=== PATIENT | female | born 2000 | race Caucasian/White ===

== ENCOUNTER 2019-11-19 06:51 | Inpatient (IN) | payer MEDICAID ==
[2019-11-19] MEDS ORDERED: Sodium Chloride 0.9% 2.5 ML Syringe FLUSH PRN (07:15)
[2019-11-19] MEDS ORDERED: Sodium Chloride 0.9% 10 ML Syringe FLUSH PRN (07:15)
[2019-11-19] MEDS ORDERED: Sodium Chloride 0.9% 1,000 ML IV ONE (07:15)
--- NOTE | 2019-11-19 07:29 | EDM.PDOC ---
ED HPI GENERAL MEDICAL PROBLEM - General Chief Complaint: Respiratory Problem Stated Complaint: TESTING Time Seen by Provider: 11/19/19 07:15 Source of Information: Reports: Patient History Limitations: Reports: No Limitations - History of Present Illness INITIAL COMMENTS - FREE TEXT/NARRATIVE: HISTORY OF PRESENT ILLNESS: Patient is a 19-year-old female with type 1 diabetes who states she has not been compliant with her medications and only taking them intermittently over the past month. She states that she has been under a great deal of stress due to a recent divorce. Reports polydipsia and polyuria. Denies any dysuria. Denies , abdominal pain, nausea vomiting or diarrhea. No fevers or chills. Reports shortness of breath which is typical when her sugars become high as per patient. She noted her fingerstick to be 495 this morning and took 20 units of Novolog. Reports occasional panic attacks but denies any suicidal or homicidal ideation. REVIEW OF SYSTEMS: Other than the symptoms associated with the present events, the following is reported with regard to recent health: General: (-) fever. HENT: (-) congestion. Respiratory: (-) cough. Cardiovascular: (-) chest pain. GI: (-) abdominal pain. : (-) dysuria Musculoskeletal: (-) other aches or pains. Endocrine: (-) generalized weakness. Neurological: (-) localized weakness. Skin: (-) rash PAST MEDICAL HISTORY: reviewed as per nursing notes SOCIAL HISTORY: reviewed as per nursing notes, MEDICATIONS: Per nurse's note ALLERGIES: Per nurse's note, reviewed by me PHYSICAL EXAMINATION: GENERALIZED APPEARANCE: well developed, well nourished in mild distress VITAL SIGNS: Per nurse's note, reviewed by me SKIN: Warm, dry; (-) cyanosis; (-) rash. HEAD: (-) scalp swelling, (-) tenderness. EYES: (-) conjunctival pallor, (-) scleral icterus. ENMT: (-) stridor; mucous membranes moist. NECK: (-) tenderness, (-) stiffness, CHEST AND RESPIRATORY: (-) rales, (-) rhonchi, (-) wheezes; breath sounds equal bilaterally, mild tachypnea. HEART AND CARDIOVASCULAR: tachycardic, regular rhythm (-) irregularity; (-) murmur, (-) gallop. ABDOMEN AND GI: Soft; (-) tenderness, (-) guarding, (-) rebound, (-) palpable masses, EXTREMITIES: (-) deformity, (-) edema. NEURO AND PSYCH: Alert. Cranial nerves grossly intact; strength symmetric. gait steady DIAGNOSTICS: EKG: sr at 93 bpm. nml axis. early repolarization. no acute st changes Labs ordered and reviewed by myself EMERGENCY DEPARTMENT COURSE AND TREATMENT: Patient's condition improved during Emergency Department evaluation. IVF ordered upon presentation, awaiting K prior to starting Insulin. Pt with hyperglycemia, anion gap of 29, pH of 7.07, K of 4.4 with moderate ketones. She is in DKA. KCl 20 mEQ added to IVF and Insulin drip started. Call placed to Dr. Meyers who kindly agrees to admit. 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 Musculoskeletal History: Reports: None Neurological History: Reports: None Psychiatric History: Reports: None Endocrine/Metabolic History: Reports: Diabetes, Type I Insulin Pump Model and Buffing Wheel Former Automatic: None Hematologic History: Reports: None Immunologic History: Reports: None Oncologic (Cancer) History: Reports: None Dermatologic History: Reports: None - Infectious Disease History Infectious Disease History: Reports: None - Past Surgical History Head Surgeries/Procedures: Reports: None Social & Family History - Family History Family Medical History: Noncontributory - Tobacco Use Smoking Status *Q: Current Some Day Smoker Years of Tobacco use: 1 Packs/Tins Daily: 1 - Caffeine Use Caffeine Use: Reports: None - Recreational Drug Use Recreational Drug Use: No ED ROS GENERAL - Review of Systems Review Of Systems: See Below (see dictation) ED EXAM, GENERAL - Physical Exam Exam: See Below (see dictation) Course - Vital Signs Last Recorded V/S: Last Vital Signs Temp 96.9 F 11/19/19 08:45 Pulse 88 11/19/19 08:45 Resp 18 11/19/19 08:45 BP 102/68 11/19/19 08:45 Pulse Ox 100 11/19/19 08:45 - Orders/Labs/Meds Orders: Active Orders 24 hr Category Date Time Status Blood Glucose Check, Bedside [] Q1HR Care 11/19/19 07:15 Active Communication Order [RC] STAT Care 11/19/19 07:48 Active Communication Order [RC] STAT Care 11/19/19 07:48 Active Communication Order [RC] STAT Care 11/19/19 07:48 Active Communication Order [RC] STAT Care 11/19/19 07:48 Active EKG 12 Lead [EKG Documentation Completion] [] STAT Care 11/19/19 07:45 Active Insulin Regular, Human [NovoLIN R] 100 unit Med 11/19/19 08:00 Active Sodium Chloride 0.9% [Normal Saline] 99 ml IV TITRATE NS + KCl 20mEq/L [Normal Saline with 20 mEq KCl] 1,000 Med 11/19/19 08:00 Active ml IV 500 mls/hr Sodium Chloride 0.9% [Saline Flush] Med 11/19/19 07:15 Active 10 ml FLUSH ASDIRECTED PRN Sodium Chloride 0.9% [Saline Flush] Med 11/19/19 07:15 Active 2.5 ml FLUSH ASDIRECTED PRN Saline Lock Insert [OM.PC] Stat Oth 11/19/19 07:15 Ordered Medication Orders Enoxaparin Sodium (Lovenox) 40 mg SUBCUT Q24H BARRY Insulin Human Regular 100 unit (/ Sodium Chloride) 100 mls @ 7.93 mls/hr IV TITRATE BARRY; Protocol Last Titration: 11/19/19 09:18 Dose: 0.07 units/kg/hr, 5.9 mls/hr Admin: 11/19/19 08:12 Dose: 0.1 units/kg/hr, 7.93 mls/hr Potassium Chloride/Sodium Chloride (Normal Saline With 20 Meq Kcl) 1,000 mls @ 500 mls/hr IV .Q2H ONE Stop: 11/19/19 09:59 Last Admin: 11/19/19 08:18 Dose: 500 mls/hr Ondansetron HCl (Zofran) 4 mg IVPUSH Q4H PRN PRN Reason: Nausea Sodium Chloride (Saline Flush) 10 ml FLUSH ASDIRECTED PRN PRN Reason: Keep Vein Open Last Admin: 11/19/19 07:45 Dose: 10 ml Sodium Chloride (Saline Flush) 2.5 ml FLUSH ASDIRECTED PRN PRN Reason: Keep Vein Open Labs: Laboratory Tests 11/19/19 11/19/19 11/19/19 Range/Units 06:50 06:50 06:50 WBC 11.98 H (4.0-11.0) K/uL RBC 5.21 (4.30-5.90) M/uL Hgb 16.1 H (12.0-16.0) g/dL Hct 50.8 H (36.0-46.0) % MCV 97.5 (80.0-98.0) fL MCH 30.9 (27.0-32.0) pg MCHC 31.7 (31.0-37.0) g/dL RDW Std Deviation 49.5 (28.0-62.0) fl RDW Coeff of Zahida 14 (11.0-15.0) % Plt Count 145 L (150-400) K/uL Neut % (Auto) 42.5 L (48.0-80.0) % Lymph % (Auto) 49.8 H (16.0-40.0) % [place] % (Auto) 5.4 (0.0-15.0) % Eos % (Auto) 1.5 (0.0-7.0) % Baso % (Auto) 0.8 (0.0-1.5) % Neut # (Auto) 5.1 (1.4-5.7) K/uL Lymph # (Auto) 6.0 H (0.6-2.4) K/uL [place] # (Auto) 0.7 (0.0-0.8) K/uL Eos # (Auto) 0.2 (0.0-0.7) K/uL Baso # (Auto) 0.1 (0.0-0.1) K/uL Nucleated RBC % 0.0 /100WBC Nucleated RBCs # 0 K/uL VBG pH (7.31-7.41) VBG pCO2 (35-45) mmHG VBG pO2 (30-40) mmHG VBG HCO3 (22-30) mEq/L VBG Total CO2 (41-51) mmol/L VBG Base Excess (-3.0-3.0) Sodium 135 L (136-145) mmol/L Potassium 4.4 (3.5-5.1) mmol/L Chloride 97 L (98-107) mmol/L Carbon Dioxide 8.4 L (21.0-32.0) mmol/L BUN 15 (7.0-18.0) mg/dL Creatinine 1.3 H (0.6-1.0) mg/dL Est Cr Clr Drug Dosing 76.51 mL/min Estimated GFR (MDRD) 51.7 ml/min Glucose 537 H* (74-106) mg/dL Calcium 9.1 (8.5-10.1) mg/dL Total Bilirubin 0.5 (0.2-1.0) mg/dL AST 15 (15-37) IU/L ALT 25 (14-63) IU/L Alkaline Phosphatase 112 (46-116) U/L Total Protein 7.5 (6.4-8.2) g/dL Albumin 4.2 (3.4-5.0) g/dL Globulin 3.3 (2.6-4.0) g/dL Albumin/Globulin Ratio 1.3 (0.9-1.6) Urine Color Urine Appearance Urine pH (5.0-8.0) Ur Specific [place] (1.001-1.035) Urine Protein (NEGATIVE) mg/dL Urine Glucose (UA) (NEGATIVE) mg/dL Urine Ketones (NEGATIVE) mg/dL Urine Occult Blood (NEGATIVE) Urine Nitrite (NEGATIVE) Urine Bilirubin (NEGATIVE) Urine Ictotest Urine Urobilinogen (<2.0) EU/dL Ur Leukocyte Esterase (NEGATIVE) Urine RBC (0-2/HPF) Urine WBC (0-5/HPF) Ur Epithelial Cells (NONE-FEW) Urine Bacteria (NEGATIVE) Urine HCG, Qual (NEGATIVE) Ketones MODERATE H (NEG) 11/19/19 11/19/19 11/19/19 Range/Units 06:50 07:47 07:47 WBC (4.0-11.0) K/uL RBC (4.30-5.90) M/uL Hgb (12.0-16.0) g/dL Hct (36.0-46.0) % MCV (80.0-98.0) fL MCH (27.0-32.0) pg MCHC (31.0-37.0) g/dL RDW Std Deviation (28.0-62.0) fl RDW Coeff of [place] (11.0-15.0) % Plt Count (150-400) K/uL Neut % (Auto) (48.0-80.0) % Lymph % (Auto) (16.0-40.0) % [place] % (Auto) (0.0-15.0) % Eos % (Auto) (0.0-7.0) % Baso % (Auto) (0.0-1.5) % Neut # (Auto) (1.4-5.7) K/uL Lymph # (Auto) (0.6-2.4) K/uL [place] # (Auto) (0.0-0.8) K/uL Eos # (Auto) (0.0-0.7) K/uL Baso # (Auto) (0.0-0.1) K/uL Nucleated RBC % /100WBC Nucleated RBCs # K/uL VBG pH 7.07 L (7.31-7.41) VBG pCO2 27 L (35-45) mmHG VBG pO2 31 (30-40) mmHG VBG HCO3 8 L (22-30) mEq/L VBG Total CO2 8 L (41-51) mmol/L VBG Base Excess -20.8 L (-3.0-3.0) Sodium (136-145) mmol/L Potassium (3.5-5.1) mmol/L Chloride (98-107) mmol/L Carbon Dioxide (21.0-32.0) mmol/L BUN (7.0-18.0) mg/dL Creatinine (0.6-1.0) mg/dL Est Cr Clr Drug Dosing mL/min Estimated GFR (MDRD) ml/min Glucose (74-106) mg/dL Calcium (8.5-10.1) mg/dL Total Bilirubin (0.2-1.0) mg/dL AST (15-37) IU/L ALT (14-63) IU/L Alkaline Phosphatase (46-116) U/L Total Protein (6.4-8.2) g/dL Albumin (3.4-5.0) g/dL Globulin (2.6-4.0) g/dL Albumin/Globulin Ratio (0.9-1.6) Urine Color YELLOW Urine Appearance CLEAR Urine pH 5.5 (5.0-8.0) Ur Specific [place] >= 1.030 (1.001-1.035) Urine Protein TRACE H (NEGATIVE) mg/dL Urine Glucose (UA) >=1000 (NEGATIVE) mg/dL Urine Ketones >=80 (NEGATIVE) mg/dL Urine Occult Blood SMALL H (NEGATIVE) Urine Nitrite NEGATIVE (NEGATIVE) Urine Bilirubin SMALL H (NEGATIVE) Urine Ictotest NEGATIVE Urine Urobilinogen 0.2 (<2.0) EU/dL Ur Leukocyte Esterase NEGATIVE (NEGATIVE) Urine RBC 0-2 (0-2/HPF) Urine WBC 0-2 (0-5/HPF) Ur Epithelial Cells FEW (NONE-FEW) Urine Bacteria RARE (NEGATIVE) Urine HCG, Qual NEGATIVE (NEGATIVE) Ketones (NEG) Meds: Medications Generic Name Dose Route Start Last Admin Trade Name Freq PRN Reason Stop Dose Admin Enoxaparin Sodium 40 mg 11/19/19 09:30 Lovenox SUBCUT Q24H BARRY Insulin Human Regular 100 unit 100 mls @ 7.93 mls/hr 11/19/19 08:00 11/19/19 09:18 / Sodium Chloride IV 0.07 units/kg/hr TITRATE BARRY 5.9 mls/hr Titration Protocol 0.1 UNITS/KG/HR Potassium Chloride/Sodium Chloride 1,000 mls @ 500 mls/hr 11/19/19 08:00 08/28 08:18 Normal Saline With 20 Meq Kcl IV 11/19/19 09:59 500 mls/hr .Q2H ONE Administration Ondansetron HCl 4 mg 11/19/19 09:24 Zofran IVPUSH Q4H PRN Nausea Sodium Chloride 10 ml 11/19/19 07:15 11/19/19 07:45 Saline Flush FLUSH 10 ml ASDIRECTED PRN Administration Keep Vein Open Sodium Chloride 2.5 ml 11/19/19 07:15 Saline Flush FLUSH ASDIRECTED PRN Keep Vein Open Discontinued Medications Generic Name Dose Route Start Last Admin Trade Name Freq PRN Reason Stop Dose Admin Sodium Chloride 1,000 mls @ 999 mls/hr 11/19/19 07:15 11/19/19 07:44 Normal Saline IV 11/19/19 08:15 999 mls/hr BOLUS ONE Administration Departure - Departure Time of Disposition: 07:55 Disposition: Admitted As Inpatient 64 Condition: Good Clinical Impression: DKA (diabetic ketoacidoses) - Discharge Information Sepsis Event Note - Evaluation Sepsis Screening Result: No Definite Risk - Focused Exam Vital Signs: Vital Signs Temp Pulse Resp BP Pulse Ox 11/19/19 07:53 88 18 122/76 96 11/19/19 06:55 96.7 F L 118 H 24 H 140/86 100 Date Exam was Performed: 11/19/19 Time Exam was Performed: 09:38 - My Orders Last 24 Hours: My Active Orders 11/19/19 07:15 Blood Glucose Check, Bedside [RC] Q1HR Sodium Chloride 0.9% [Saline Flush] 10 ml FLUSH ASDIRECTED PRN Sodium Chloride 0.9% [Saline Flush] 2.5 ml FLUSH ASDIRECTED PRN Saline Lock Insert [OM.PC] Stat 11/19/19 07:45 EKG 12 Lead [EKG Documentation Completion] [RC] STAT 11/19/19 07:48 Communication Order [RC] STAT Communication Order [RC] STAT Communication Order [RC] STAT Communication Order [RC] STAT 11/19/19 08:00 Insulin Regular, Human [NovoLIN R] 100 unit Sodium Chloride 0.9% [Normal Saline] 99 ml IV TITRATE NS + KCl 20mEq/L [Normal Saline with 20 mEq KCl] 1,000 ml IV 500 mls/hr - Assessment/Plan Last 24 Hours: My Active Orders 11/19/19 07:15 Blood Glucose Check, Bedside [RC] Q1HR Sodium Chloride 0.9% [Saline Flush] 10 ml FLUSH ASDIRECTED PRN Sodium Chloride 0.9% [Saline Flush] 2.5 ml FLUSH ASDIRECTED PRN Saline Lock Insert [OM.PC] Stat 11/19/19 07:45 EKG 12 Lead [EKG Documentation Completion] [RC] STAT 11/19/19 07:48 Communication Order [RC] STAT Communication Order [RC] STAT Communication Order [RC] STAT Communication Order [RC] STAT 11/19/19 08:00 Insulin Regular, Human [NovoLIN R] 100 unit Sodium Chloride 0.9% [Normal Saline] 99 ml IV TITRATE NS + KCl 20mEq/L [Normal Saline with 20 mEq KCl] 1,000 ml IV 500 mls/hr
[2019-11-19 07:33] LABS: CARBON DIOXIDE,CO2 8.4 mmol/L (21.0-32.0); POTASSIUM,K 4.4 mmol/L (3.5-5.1)
[2019-11-19] MEDS ORDERED: NS + KCl 20mEq/L 1,000 ML IV ONE (08:00)
[2019-11-19] MEDS ORDERED: Ondansetron 4 MG/2 ML SDV IVPUSH PRN (09:24)
[2019-11-19] MEDS ORDERED: Enoxaparin 40 MG/0.4 ML Syringe SUBCUT SCH (09:30)
[2019-11-19 10:32] LABS: HEMOGLOBIN A1C 11.5 % (4.5-6.2)
--- NOTE | 2019-11-19 10:32 | PN ---
THC Physician - Brief Progress [id number]/12/2020 09:57[facility] Keny Fernando, [facility]U - [facility] - MWN ICUKAJAL HANDYDate of Service 11/19/2019 09:57HPI/Events of Note eICU Admission [id number] admitted for DKA. History obtained primarily from review of EMR.PMH: type 1 DMHPI:Camera exam: Laying in bed. Vitals monitor reviewed. Vitals: reviewedLabs: reviewedRadio logy: reviewedMeds: reviewedeICU Impression and Recommendations:Diabetic ketoacidosis, as evidenced b y hyperglycemia, ketone production, and elevated anion gap. Suspected etiology is inadequate insulin. Recommend initiation of institutional diabetic ketoacidosis protocol for insulin replacement. Patient to remain strict NPO (except meds)Intravenous fluids for fluid resuscitation with strict I/OElectrol yte replacement as needed, including potassium, magnesium and phosphorus.Given concomitant insulin ad ministration, recommend aggressive potassium replacement given risk of further depletion.BMP and VBG q4h for assessment of progression. Consider checking magnesium and phosphorus levels. Hb [id number] diabetes education prior to discharge, with close PCP follow upPositive SIRS criteria, as evidenced by tachycardia and leukocytosis, likely secondary to DKA rather than sepsistrend WBC and vitals with fluid resuscitation over next hours to assess progression, and if they fail to resolve can initiate s epsis work up with blood cultures, respiratory cultures, urinalysis, chest x-ray, and serum lactateDV T and GI prophylaxis as appropriate.Thank you for allowing us to participate in the care of this elvis ent.The above note transcribed with the assistance of dictation software. Please excuse any errors.In terventions Major-Other: DKA
[2019-11-19] MEDS: D5 1/2 NS w/ 20 mEq/L KCl 1,000 ML IV SCH ×3 (10:35→19:23)
[2019-11-19 10:37] LABS: BLOOD UREA NITROGEN,BUN 13 mg/dL (7.0-18.0); CARBON DIOXIDE,CO2 12.2 mmol/L (21.0-32.0); CHLORIDE,CL 105 mmol/L (98-107); GLUCOSE RANDOM 197 mg/dL (74-106); POTASSIUM,K 4.1 mmol/L (3.5-5.1); SODIUM,NA 139 mmol/L (136-145)
[2019-11-19] MEDS ORDERED: Nicotine 14 MG/24 Hr Patch TRDERM SCH (10:45)
--- NOTE | 2019-11-19 11:31 | PCM.HP.2 ---
H&P History of Present Illness - General Date of Service: 11/19/19 Admit Problem/Dx: Admission Diagnosis/Problem Admission Diagnosis/Problem Diabetic ketoacidosis Source of Information: Patient History Limitations: Reports: No Limitations - History of Present Illness Initial Comments - Free Text/Narative: 19-year-old female presented to hospital complaining of increased urination, increased thirst, dizziness and elevated blood sugars for the past few days. She has a PMH of type 1 DM and bipolar disorder. Patient reports that she has not been taking her insulin as prescribed lately. She reports going through significant family stressors recently including going through a divorce and being away from her children. Her home blood sugar reading this morning was 500 so she decided to go to the ER. She takes levemir 14 units BID and novolog sliding scale. She reports not seeing her PCP for a long time but does not provide a timeline. She smokes tobacco 1 ppd every 2-3 days. Denies alcohol use. Denies illicit drug use. Denies any suicidal or homicidal ideation. Furthermore, she denies having any fevers, chills, blurry vision, sore throat, cough, chest pain, SOB, n/v/d, abdominal pain, burning on urination, blood in stool, blood in urine, numbness or tingling. In the ER, blood glucose was > 500. VBG showed: pH 7, HCO3 8, pCO2 27. UA was positive for ketones. WBC count 11.98. Patient started on IV fluids, potassium replacement and insulin drip. Patient admitted to ICU for further evaluation and treatment. - Related Data Allergies/Adverse Reactions: Allergies Allergy/AdvReac Type Severity Reaction Status Date / Time codeine Allergy Hives Verified 11/19/19 06:57 Home Medications: Home Meds Insulin Aspart [NovoLOG] 1 injection SQ ASDIRECTED 11/19/19 [History] Insulin Detemir [Levemir] 1 injection SUBCUT ASDIRECTED 11/19/19 [History] Past Medical History HEENT History: Reports: None Cardiovascular History: Reports: None Respiratory History: Reports: None Gastrointestinal History: Reports: None Genitourinary History: Reports: None CHECK SCALER History: Reports: None Musculoskeletal History: Reports: None Neurological History: Reports: None Psychiatric History: Reports: None Endocrine/Metabolic History: Reports: Diabetes, Type I Insulin Pump Model and Trapeze Performer: None Hematologic History: Reports: None Immunologic History: Reports: None Oncologic (Cancer) History: Reports: None Dermatologic History: Reports: None - Infectious Disease History Infectious Disease History: Reports: None - Past Surgical History Head Surgeries/Procedures: Reports: None Social & Family History - Family History Family Medical History: Noncontributory - Tobacco Use Smoking Status *Q: Current Some Day Smoker Years of Tobacco use: 1 Packs/Tins Daily: 1 - Caffeine Use Caffeine Use: Reports: None - Recreational Drug Use Recreational Drug Use: No H&P Review of Systems - Review of Systems: Review Of Systems: Comprehensive ROS is negative, except as noted in HPI. Exam - Exam Exam: See Below - Vital Signs Vital Signs: Last Vital Signs Temp 96.9 F 11/19/19 08:45 Pulse 88 11/19/19 08:45 Resp 18 11/19/19 08:45 BP 102/68 11/19/19 08:45 Pulse Ox 100 11/19/19 08:45 Weight: 175 lb - Exam General: Alert, Oriented, Cooperative, Other (NAD) HEENT: Conjunctiva Clear, EOMI, Hearing Intact Neck: Supple, Trachea Midline Lungs: Clear to Auscultation, Normal Respiratory Effort Cardiovascular: Regular Rate, Regular Rhythm GI/Abdominal Exam: Normal Bowel Sounds, Soft, Non-Tender, No Distention Extremities: Normal Inspection, No Pedal Edema Peripheral Pulses: 2+: Posterior Tibial (L), Posterior Tibial (R) Skin: Warm, Dry, Intact Neurological: Cranial Nerves Intact Neuro Extensive - Mental Status: Alert, Oriented x3, Normal Mood/Affect Psychiatric: Other (Flat affect. Normal mood.) - Patient Data Lab Results Last 24 hrs: Laboratory Results - last 24 hr 11/19/19 11/19/19 11/19/19 Range/Units 06:50 06:50 06:50 WBC 11.98 H (4.0-11.0) K/uL RBC 5.21 (4.30-5.90) M/uL Hgb 16.1 H (12.0-16.0) g/dL Hct 50.8 H (36.0-46.0) % MCV 97.5 (80.0-98.0) fL MCH 30.9 (27.0-32.0) pg MCHC 31.7 (31.0-37.0) g/dL RDW Std Deviation 49.5 (28.0-62.0) fl RDW Coeff of Zahida 14 (11.0-15.0) % Plt Count 145 L (150-400) K/uL Neut % (Auto) 42.5 L (48.0-80.0) % Lymph % (Auto) 49.8 H (16.0-40.0) % [place] % (Auto) 5.4 (0.0-15.0) % Eos % (Auto) 1.5 (0.0-7.0) % Baso % (Auto) 0.8 (0.0-1.5) % Neut # (Auto) 5.1 (1.4-5.7) K/uL Lymph # (Auto) 6.0 H (0.6-2.4) K/uL [place] # (Auto) 0.7 (0.0-0.8) K/uL Eos # (Auto) 0.2 (0.0-0.7) K/uL Baso # (Auto) 0.1 (0.0-0.1) K/uL Nucleated RBC % 0.0 /100WBC Nucleated RBCs # 0 K/uL VBG pH (7.31-7.41) VBG pCO2 (35-45) mmHG VBG pO2 (30-40) mmHG VBG HCO3 (22-30) mEq/L VBG Total CO2 (41-51) mmol/L VBG Base Excess (-3.0-3.0) Sodium 135 L (136-145) mmol/L Potassium 4.4 (3.5-5.1) mmol/L Chloride 97 L (98-107) mmol/L Carbon Dioxide 8.4 L (21.0-32.0) mmol/L BUN 15 (7.0-18.0) mg/dL Creatinine 1.3 H (0.6-1.0) mg/dL Est Cr Clr Drug Dosing 76.51 mL/min Estimated GFR (MDRD) 51.7 ml/min Glucose 537 H* (74-106) mg/dL POC Glucose (60-110) mg/dL Hemoglobin A1c (4.5-6.2) % Calcium 9.1 (8.5-10.1) mg/dL Phosphorus (2.6-4.7) mg/dL Magnesium (1.8-2.4) mg/dL Total Bilirubin 0.5 (0.2-1.0) mg/dL AST 15 (15-37) IU/L ALT 25 (14-63) IU/L Alkaline Phosphatase 112 (46-116) U/L Total Protein 7.5 (6.4-8.2) g/dL Albumin 4.2 (3.4-5.0) g/dL Globulin 3.3 (2.6-4.0) g/dL Albumin/Globulin Ratio 1.3 (0.9-1.6) Urine Color Urine Appearance Urine pH (5.0-8.0) Ur Specific [place] (1.001-1.035) Urine Protein (NEGATIVE) mg/dL Urine Glucose (UA) (NEGATIVE) mg/dL Urine Ketones (NEGATIVE) mg/dL Urine Occult Blood (NEGATIVE) Urine Nitrite (NEGATIVE) Urine Bilirubin (NEGATIVE) Urine Ictotest Urine Urobilinogen (<2.0) EU/dL Ur Leukocyte Esterase (NEGATIVE) Urine RBC (0-2/HPF) Urine WBC (0-5/HPF) Ur Epithelial Cells (NONE-FEW) Urine Bacteria (NEGATIVE) Urine HCG, Qual (NEGATIVE) Ketones MODERATE H (NEG) 11/19/19 11/19/19 11/19/19 Range/Units 06:50 06:50 06:50 WBC (4.0-11.0) K/uL RBC (4.30-5.90) M/uL Hgb (12.0-16.0) g/dL Hct (36.0-46.0) % MCV (80.0-98.0) fL MCH (27.0-32.0) pg MCHC (31.0-37.0) g/dL RDW Std Deviation (28.0-62.0) fl RDW Coeff of Zahida (11.0-15.0) % Plt Count (150-400) K/uL Neut % (Auto) (48.0-80.0) % Lymph % (Auto) (16.0-40.0) % [place] % (Auto) (0.0-15.0) % Eos % (Auto) (0.0-7.0) % Baso % (Auto) (0.0-1.5) % Neut # (Auto) (1.4-5.7) K/uL Lymph # (Auto) (0.6-2.4) K/uL [place] # (Auto) (0.0-0.8) K/uL Eos # (Auto) (0.0-0.7) K/uL Baso # (Auto) (0.0-0.1) K/uL Nucleated RBC % /100WBC Nucleated RBCs # K/uL VBG pH 7.07 L (7.31-7.41) VBG pCO2 27 L (35-45) mmHG VBG pO2 31 (30-40) mmHG VBG HCO3 8 L (22-30) mEq/L VBG Total CO2 8 L (41-51) mmol/L VBG Base Excess -20.8 L (-3.0-3.0) Sodium (136-145) mmol/L Potassium (3.5-5.1) mmol/L Chloride (98-107) mmol/L Carbon Dioxide (21.0-32.0) mmol/L BUN (7.0-18.0) mg/dL Creatinine (0.6-1.0) mg/dL Est Cr Clr Drug Dosing mL/min Estimated GFR (MDRD) ml/min Glucose (74-106) mg/dL POC Glucose (60-110) mg/dL Hemoglobin A1c 11.5 H (4.5-6.2) % Calcium (8.5-10.1) mg/dL Phosphorus 4.3 (2.6-4.7) mg/dL Magnesium 1.9 (1.8-2.4) mg/dL Total Bilirubin (0.2-1.0) mg/dL AST (15-37) IU/L ALT (14-63) IU/L Alkaline Phosphatase (46-116) U/L Total Protein (6.4-8.2) g/dL Albumin (3.4-5.0) g/dL Globulin (2.6-4.0) g/dL Albumin/Globulin Ratio (0.9-1.6) Urine Color Urine Appearance Urine pH (5.0-8.0) Ur Specific [place] (1.001-1.035) Urine Protein (NEGATIVE) mg/dL Urine Glucose (UA) (NEGATIVE) mg/dL Urine Ketones (NEGATIVE) mg/dL Urine Occult Blood (NEGATIVE) Urine Nitrite (NEGATIVE) Urine Bilirubin (NEGATIVE) Urine Ictotest Urine Urobilinogen (<2.0) EU/dL Ur Leukocyte Esterase (NEGATIVE) Urine RBC (0-2/HPF) Urine WBC (0-5/HPF) Ur Epithelial Cells (NONE-FEW) Urine Bacteria (NEGATIVE) Urine HCG, Qual (NEGATIVE) Ketones (NEG) 11/19/19 11/19/19 11/19/19 Range/Units 07:47 07:47 09:07 WBC (4.0-11.0) K/uL RBC (4.30-5.90) M/uL Hgb (12.0-16.0) g/dL Hct (36.0-46.0) % MCV (80.0-98.0) fL MCH (27.0-32.0) pg MCHC (31.0-37.0) g/dL RDW Std Deviation (28.0-62.0) fl RDW Coeff of Zahida (11.0-15.0) % Plt Count (150-400) K/uL Neut % (Auto) (48.0-80.0) % Lymph % (Auto) (16.0-40.0) % [place] % (Auto) (0.0-15.0) % Eos % (Auto) (0.0-7.0) % Baso % (Auto) (0.0-1.5) % Neut # (Auto) (1.4-5.7) K/uL Lymph # (Auto) (0.6-2.4) K/uL [place] # (Auto) (0.0-0.8) K/uL Eos # (Auto) (0.0-0.7) K/uL Baso # (Auto) (0.0-0.1) K/uL Nucleated RBC % /100WBC Nucleated RBCs # K/uL VBG pH (7.31-7.41) VBG pCO2 (35-45) mmHG VBG pO2 (30-40) mmHG VBG HCO3 (22-30) mEq/L VBG Total CO2 (41-51) mmol/L VBG Base Excess (-3.0-3.0) Sodium (136-145) mmol/L Potassium (3.5-5.1) mmol/L Chloride (98-107) mmol/L Carbon Dioxide (21.0-32.0) mmol/L BUN (7.0-18.0) mg/dL Creatinine (0.6-1.0) mg/dL Est Cr Clr Drug Dosing mL/min Estimated GFR (MDRD) ml/min Glucose (74-106) mg/dL POC Glucose 244 H (60-110) mg/dL Hemoglobin A1c (4.5-6.2) % Calcium (8.5-10.1) mg/dL Phosphorus (2.6-4.7) mg/dL Magnesium (1.8-2.4) mg/dL Total Bilirubin (0.2-1.0) mg/dL AST (15-37) IU/L ALT (14-63) IU/L Alkaline Phosphatase (46-116) U/L Total Protein (6.4-8.2) g/dL Albumin (3.4-5.0) g/dL Globulin (2.6-4.0) g/dL Albumin/Globulin Ratio (0.9-1.6) Urine Color YELLOW Urine Appearance CLEAR Urine pH 5.5 (5.0-8.0) Ur Specific [place] >= 1.030 (1.001-1.035) Urine Protein TRACE H (NEGATIVE) mg/dL Urine Glucose (UA) >=1000 (NEGATIVE) mg/dL Urine Ketones >=80 (NEGATIVE) mg/dL Urine Occult Blood SMALL H (NEGATIVE) Urine Nitrite NEGATIVE (NEGATIVE) Urine Bilirubin SMALL H (NEGATIVE) Urine Ictotest NEGATIVE Urine Urobilinogen 0.2 (<2.0) EU/dL Ur Leukocyte Esterase NEGATIVE (NEGATIVE) Urine RBC 0-2 (0-2/HPF) Urine WBC 0-2 (0-5/HPF) Ur Epithelial Cells FEW (NONE-FEW) Urine Bacteria RARE (NEGATIVE) Urine HCG, Qual NEGATIVE (NEGATIVE) Ketones (NEG) 11/19/19 11/19/19 11/19/19 Range/Units 10:11 10:12 11:08 WBC (4.0-11.0) K/uL RBC (4.30-5.90) M/uL Hgb (12.0-16.0) g/dL Hct (36.0-46.0) % MCV (80.0-98.0) fL MCH (27.0-32.0) pg MCHC (31.0-37.0) g/dL RDW Std Deviation (28.0-62.0) fl RDW Coeff of Zahida (11.0-15.0) % Plt Count (150-400) K/uL Neut % (Auto) (48.0-80.0) % Lymph % (Auto) (16.0-40.0) % [place] % (Auto) (0.0-15.0) % Eos % (Auto) (0.0-7.0) % Baso % (Auto) (0.0-1.5) % Neut # (Auto) (1.4-5.7) K/uL Lymph # (Auto) (0.6-2.4) K/uL [place] # (Auto) (0.0-0.8) K/uL Eos # (Auto) (0.0-0.7) K/uL Baso # (Auto) (0.0-0.1) K/uL Nucleated RBC % /100WBC Nucleated RBCs # K/uL VBG pH (7.31-7.41) VBG pCO2 (35-45) mmHG VBG pO2 (30-40) mmHG VBG HCO3 (22-30) mEq/L VBG Total CO2 (41-51) mmol/L VBG Base Excess (-3.0-3.0) Sodium 139 (136-145) mmol/L Potassium 4.1 (3.5-5.1) mmol/L Chloride 105 (98-107) mmol/L Carbon Dioxide 12.2 L (21.0-32.0) mmol/L BUN 13 (7.0-18.0) mg/dL Creatinine 1.0 (0.6-1.0) mg/dL Est Cr Clr Drug Dosing 99.46 mL/min Estimated GFR (MDRD) > 60.0 ml/min Glucose 197 H (74-106) mg/dL POC Glucose 191 H 142 H (60-110) mg/dL Hemoglobin A1c (4.5-6.2) % Calcium 8.5 (8.5-10.1) mg/dL Phosphorus (2.6-4.7) mg/dL Magnesium (1.8-2.4) mg/dL Total Bilirubin (0.2-1.0) mg/dL AST (15-37) IU/L ALT (14-63) IU/L Alkaline Phosphatase (46-116) U/L Total Protein (6.4-8.2) g/dL Albumin (3.4-5.0) g/dL Globulin (2.6-4.0) g/dL Albumin/Globulin Ratio (0.9-1.6) Urine Color Urine Appearance Urine pH (5.0-8.0) Ur Specific [place] (1.001-1.035) Urine Protein (NEGATIVE) mg/dL Urine Glucose (UA) (NEGATIVE) mg/dL Urine Ketones (NEGATIVE) mg/dL Urine Occult Blood (NEGATIVE) Urine Nitrite (NEGATIVE) Urine Bilirubin (NEGATIVE) Urine Ictotest Urine Urobilinogen (<2.0) EU/dL Ur Leukocyte Esterase (NEGATIVE) Urine RBC (0-2/HPF) Urine WBC (0-5/HPF) Ur Epithelial Cells (NONE-FEW) Urine Bacteria (NEGATIVE) Urine HCG, Qual (NEGATIVE) Ketones (NEG) Result Diagrams: 11/19/19 06:50 11/19/19 10:11 Sepsis Event Note - Evaluation Sepsis Screening Result: No Definite Risk - Focused Exam Vital Signs: Vital Signs Temp Pulse Resp BP Pulse Ox 11/19/19 08:45 96.9 F 88 18 102/68 100 11/19/19 08:28 79 20 111/68 100 11/19/19 08:09 97.3 F 85 18 109/64 100 11/19/19 07:53 88 18 122/76 96 11/19/19 06:55 96.7 F L 118 H 24 H 140/86 100 Date Exam was Performed: 11/19/19 Time Exam was Performed: 11:25 Problem List Initiated/Reviewed/Updated: Yes Orders Last 24hrs: Active Orders 24 hr Category Date Time Status Admission Status [Patient Status] [ADT] Stat ADT 11/19/19 08:01 Active Blood Glucose Check, Bedside [RC] Q1HR Care 11/19/19 07:15 Active Communication Order [RC] STAT Care 11/19/19 07:48 Active Communication Order [RC] STAT Care 11/19/19 07:48 Active Communication Order [RC] STAT Care 11/19/19 07:48 Active Communication Order [RC] STAT Care 11/19/19 07:48 Active EKG 12 Lead [EKG Documentation Completion] [RC] STAT Care 11/19/19 07:45 Active Oxygen Therapy [RC] PRN Care 11/19/19 09:24 Active Up ad Emily [RC] ASDIRECTED Care 11/19/19 09:24 Active VTE/DVT Education [RC] PER UNIT ROUTINE Care 11/19/19 09:24 Active Vital Signs [RC] Q1H Care 11/19/19 09:24 Active Consult to Academic Success Coordinator [Consult to Diabetic Nurse Cons 11/19/19 09:53 Active Specialist] [CONS] Routine Nothing per Oral Now Diet [DIET] Diet 11/19/19 Breakfast Active BASIC METABOLIC PANEL,BMP [CHEM] Q4H Lab 11/19/19 13:35 Ordered BASIC METABOLIC PANEL,BMP [CHEM] Q4H Lab 11/19/19 17:35 Ordered BASIC METABOLIC PANEL,BMP [CHEM] Q4H Lab 11/19/19 21:35 Ordered BASIC METABOLIC PANEL,BMP [CHEM] Q4H Lab 11/20/19 01:35 Ordered BASIC METABOLIC PANEL,BMP [CHEM] Q4H Lab 11/20/19 05:35 Ordered D5 1/2 NS w/ 20 mEq/L KCl 1,000 ml Med 11/19/19 09:45 Active IV ASDIRECTED Insulin Regular, Human [NovoLIN R] 100 unit Med 11/19/19 09:57 Active Sodium Chloride 0.9% [Normal Saline] 99 ml IV TITRATE Nicotine [Habitrol] Med 11/19/19 10:45 Active 14 mg TRDERM DAILY Ondansetron [Zofran] Med 11/19/19 09:24 Active 4 mg IVPUSH Q4H PRN Sodium Chloride 0.9% [Saline Flush] Med 11/19/19 07:15 Active 10 ml FLUSH ASDIRECTED PRN Sodium Chloride 0.9% [Saline Flush] Med 11/19/19 07:15 Active 2.5 ml FLUSH ASDIRECTED PRN Saline Lock Insert [OM.PC] Stat Oth 11/19/19 07:15 Ordered Resuscitation Status Routine Resus Stat 11/19/19 09:24 Ordered Medication Orders Potassium Chloride/Dextrose/Sod Cl (D5 1/2 Ns W/ 20 Meq/L Kcl) 1,000 mls @ 250 mls/hr IV ASDIRECTED BARRY Last Infusion: 11/19/19 10:38 Dose: 250 mls/hr Admin: 11/19/19 10:35 Dose: 250 mls/hr Insulin Human Regular 100 unit (/ Sodium Chloride) 100 mls @ 7.93 mls/hr IV TITRATE BARRY; Protocol Nicotine (Habitrol) 14 mg TRDERM DAILY BARRY Last Admin: 11/19/19 11:19 Dose: 14 mg Ondansetron HCl (Zofran) 4 mg IVPUSH Q4H PRN PRN Reason: Nausea Sodium Chloride (Saline Flush) 10 ml FLUSH ASDIRECTED PRN PRN Reason: Keep Vein Open Last Admin: 11/19/19 07:45 Dose: 10 ml Sodium Chloride (Saline Flush) 2.5 ml FLUSH ASDIRECTED PRN PRN Reason: Keep Vein Open Assessment/Plan Comment:: Assessment and Plan: 1. Diabetic ketoacidosis in a patient with type 1 DM: - IV fluids, insulin drip and potassium replacement per DKA protocol. Patient currently on D5-1/2 NS + KCl @ 250 cc/hr. Will check BMP q4h. Accucheks q1h. HgbA1c is 11.5. Will consult hematology nurse educator. 2. Tobacco abuse: - Will start nicotine patch. 3. DVT prophylaxis: SCD's.
[2019-11-19 14:22] LABS: BLOOD UREA NITROGEN,BUN 11 mg/dL (7.0-18.0); CARBON DIOXIDE,CO2 18.6 mmol/L (21.0-32.0); CHLORIDE,CL 107 mmol/L (98-107); GLUCOSE RANDOM 154 mg/dL (74-106); POTASSIUM,K 3.8 mmol/L (3.5-5.1); SODIUM,NA 139 mmol/L (136-145)
[2019-11-19] MEDS ORDERED: Calcium Carbonate 500 MG Tab.Chew PO ONE (17:09)
[2019-11-19 18:35] LABS: BLOOD UREA NITROGEN,BUN 10 mg/dL (7.0-18.0); CARBON DIOXIDE,CO2 20.2 mmol/L (21.0-32.0); CHLORIDE,CL 107 mmol/L (98-107); GLUCOSE RANDOM 218 mg/dL (74-106); POTASSIUM,K 3.6 mmol/L (3.5-5.1); SODIUM,NA 139 mmol/L (136-145)
[2019-11-19] MEDS ORDERED: Insulin Detemir 100 Units/ML 3 ML Pen SUBCUT ONE (20:54)
--- NOTE | 2019-11-20 12:07 | PCM.DCSUM1 ---
Discharge Summary - Hospital Course Free Text/Narrative:: 19-year-old female with PMH of type 1 diabetes mellitus admitted for DKA. She was admitted to ICU and treated with IV fluids, potassium replacement and IV insulin drip per DKA protocol. Patient had steady improvement in her anion gap throughout the day. Later in the evening on day of admission, patient requested to leave against medical advice as she reported that her had committed suicide in [place] and patient needed to leave to get to her children in [place]. Patient was given subcutaneous levemir 16 units prior to discharge. Patient signed AMA paperwork prior to leaving. - Discharge Data Discharge Date: 11/19/19 Discharge Disposition: Against Medical Advice 07 Condition: Stable - Referral to Home Health Primary Care Physician: Nya Gordon NP - Patient Summary/Data Consults: Consultations 11/19/19 09:53 Consult to Manager Of Network [Consult to Diabetic Nurse Specialist] [CONS] Routine - Patient Instructions Diet: Diabetic Diet Activity: As Tolerated Notify Provider of: Fever, Increased Pain, Swelling and Redness, Drainage, Nausea and/or Vomiting - Discharge Plan *PRESCRIPTION DRUG MONITORING PROGRAM REVIEWED*: Not Applicable *COPY OF PRESCRIPTION DRUG MONITORING REPORT IN PATIENT ROCIO: Not Applicable Home Medications: Home Meds Insulin Aspart [NovoLOG] 1 injection SQ ASDIRECTED 11/19/19 [History] Insulin Detemir [Levemir] 1 injection SUBCUT ASDIRECTED 11/19/19 [History] Oxygen Therapy Mode: Room Air Forms: ED Department Discharge Referrals: Nya Gordon NP [Primary Care Provider] - - Discharge Summary/Plan Comment DC Time >30 min.: No - Patient Data Vitals - Most Recent: Last Vital Signs Temp 98.0 F 11/19/19 17:00 Pulse 93 11/19/19 18:00 Resp 13 11/19/19 20:00 BP 112/76 11/19/19 20:00 Pulse Ox 100 11/19/19 20:00 Weight - Most Recent: 175 lb I&O - Last 24 hours: Intake & Output 11/19/19 11/20/19 11/20/19 22:59 06:59 14:59 Intake Total 4021 Balance 4021 Lab Results - Last 24 hrs: Laboratory Results - last 24 hr 11/19/19 11/19/19 11/19/19 Range/Units 12:06 13:51 15:07 Sodium 139 (136-145) mmol/L Potassium 3.8 (3.5-5.1) mmol/L Chloride 107 (98-107) mmol/L Carbon Dioxide 18.6 L (21.0-32.0) mmol/L BUN 11 (7.0-18.0) mg/dL Creatinine 1.0 (0.6-1.0) mg/dL Est Cr Clr Drug Dosing 99.46 mL/min Estimated GFR (MDRD) > 60.0 ml/min Glucose 154 H (74-106) mg/dL POC Glucose 132 H 223 H (60-110) mg/dL Calcium 7.9 L (8.5-10.1) mg/dL 11/19/19 11/19/19 11/19/19 Range/Units 16:08 17:07 17:58 Sodium 139 (136-145) mmol/L Potassium 3.6 (3.5-5.1) mmol/L Chloride 107 (98-107) mmol/L Carbon Dioxide 20.2 L (21.0-32.0) mmol/L BUN 10 (7.0-18.0) mg/dL Creatinine 0.9 (0.6-1.0) mg/dL Est Cr Clr Drug Dosing 110.52 mL/min Estimated GFR (MDRD) > 60.0 ml/min Glucose 218 H (74-106) mg/dL POC Glucose 260 H 208 H (60-110) mg/dL Calcium 8.0 L (8.5-10.1) mg/dL 11/19/19 11/19/19 Range/Units 18:14 20:16 Sodium (136-145) mmol/L Potassium (3.5-5.1) mmol/L Chloride (98-107) mmol/L Carbon Dioxide (21.0-32.0) mmol/L BUN (7.0-18.0) mg/dL Creatinine (0.6-1.0) mg/dL Est Cr Clr Drug Dosing mL/min Estimated GFR (MDRD) ml/min Glucose (74-106) mg/dL POC Glucose 213 H 211 H (60-110) mg/dL Calcium (8.5-10.1) mg/dL Med Orders - Current: Current Medications Discontinued Medications Calcium Carbonate/Glycine (Tums) 1,000 mg PO ONETIME ONE Stop: 03/12/20 17:10 Enoxaparin Sodium (Lovenox) 40 mg SUBCUT Q24H BARRY Sodium Chloride (Normal Saline) 1,000 mls @ 999 mls/hr IV BOLUS ONE Stop: 11/19/19 08:15 Last Admin: 11/19/19 07:44 Dose: 999 mls/hr Insulin Human Regular 100 unit (/ Sodium Chloride) 100 mls @ 7.93 mls/hr IV TITRATE BARRY; Protocol Last Titration: 11/19/19 10:00 Dose: 0.03 units/kg/hr, 3 mls/hr Potassium Chloride/Sodium Chloride (Normal Saline With 20 Meq Kcl) 1,000 mls @ 500 mls/hr IV .Q2H ONE Stop: 11/19/19 09:59 Last Infusion: 11/19/19 10:35 Dose: Infused Potassium Chloride/Dextrose/Sod Cl (D5 1/2 Ns W/ 20 Meq/L Kcl) 1,000 mls @ 250 mls/hr IV ASDIRECTED BARRY Last Admin: 11/19/19 19:23 Dose: 250 mls/hr Insulin Human Regular 100 unit (/ Sodium Chloride) 100 mls @ 7.93 mls/hr IV TITRATE BARRY; Protocol Last Titration: 11/19/19 18:19 Dose: 0.05 units/kg/hr, 4 mls/hr Insulin Detemir (Levemir) 16 unit SUBCUT ONETIME ONE Stop: 11/19/19 20:55 Last Admin: 11/19/19 21:11 Dose: 16 unit Nicotine (Habitrol) 14 mg TRDERM DAILY BARRY Last Admin: 11/19/19 11:19 Dose: 14 mg Ondansetron HCl (Zofran) 4 mg IVPUSH Q4H PRN PRN Reason: Nausea Sodium Chloride (Saline Flush) 10 ml FLUSH ASDIRECTED PRN PRN Reason: Keep Vein Open Last Admin: 11/19/19 07:45 Dose: 10 ml Sodium Chloride (Saline Flush) 2.5 ml FLUSH ASDIRECTED PRN PRN Reason: Keep Vein Open
== END 2019-11-19 21:15 | disposition left against medical advice (07) | DRG 638 ==
LOC: MW.ED 06:51 → MW.ICU 08:01
PROVIDERS: ADMIT Internal Medicine; ATTEND Internal Medicine
DX: E10.10 Type 1 diabetes mellitus with ketoacidosis without coma (principal); R65.10 Systemic inflammatory response syndrome (SIRS) of non-infectious origin without acute organ dysfunction; F17.210 Nicotine dependence, cigarettes, uncomplicated; Z88.5 Allergy status to narcotic agent; Z79.4 Long term (current) use of insulin
CPT/HCPCS: 36415; 80048; 80053; 81001; 81025; 82009; 82803; 82962; 83036; 83735; 84100; 85025; 93005; 99285-25; A9270-GY; J1815-GY; J3480; J7030